=== PATIENT | male | born 1950 | race Asian ===

== ENCOUNTER 2025-08-15 06:28 | Day surgery (SDC) | payer OTHER, SELFPAY ==
[2025-08-15] VITALS (8 sets, daily range): BP systolic 104–141; BP diastolic 53–70; BMI 25.5
[2025-08-15 07:26] LABS: Glucose - Point of Care 128 mg/dl (70-99)
--- NOTE | 2025-08-15 08:39 | ITS.CL.PN ---
Hand Drawer In - Procedure Note
Procedure
Procedure Note:
CARDIAC CATHETERIZATION REPORT
Date of Procedure: 08/15/2025
Referring: Dr. Marek Powell MD
Indication: positive cardiac stress test, severe aortic valve stenosis
PROCEDURE(S)
1. right heart catheterization
2. left heart catheterization
3. coronary angiography
ACCESS
1. 6F right radial artery (closure: radial band)
2. 5F right antecubital vein (closure: manual hemostasis)
CATHETERS
1. 5F [place]-Jaci
2. 6F JR4
3. 6F JL3.5
MODERATE SEDATION: 25 minutes of moderate sedation was utilized. An independent medical research tech was present to assist with and help manage the patient's level of consciousness and physiologic status.
HEMODYNAMIC DATA
LV 164/13 (EDP 23) mmHg
AO 139/68 (mean 98) mmHg
RA 12 mmHg
RV 37/8 (EDP 15) mmHg
PA 36/18 (mean 27) mmHg
PCWP 17 mmHg
SaO2 97.8%
SvO2 65.9%
Hb 10.1 g/dL
CO/CI 5.28/2.85 L/min/m2
SVR 1303 dsc*-5
PVR 1.9 Wood units
CORONARY ANGIOGRAPHY
Dominance: Right
LM: Large vessel with mild ostial tapering.
LAD: Large vessel giving rise to a small D1 and moderate caliber branching D2 before wrapping around the apex. There are trivial luminal irregularities only.
LCx: Moderate caliber vessel giving rise to a small OM1, moderate caliber OM2, and small OM 3. There are trivial luminal irregularities only.
RCA: Large vessel giving rise to a small RPDA, moderate caliber LPL1, and small LPL 2. There are trivial luminal irregularities only.
CONCLUSIONS
1. Mild coronary artery disease as described.
2. Mildly elevated biventricular filling pressures and normal cardiac output.
3. Elevated pullback gradient across the aortic valve consistent with known severe aortic valve stenosis demonstrated on recent echocardiogram.
RECOMMENDATIONS
1. Primary prevention of coronary artery disease.
2. Proceed with evaluation for TAVR.
Copy to: Dr. Marek Powell MD (postal supervisor); Dr. Juan Tejada DO (PCP)
Signed: Scott Dye MD, PhD
[2025-08-15 09:02] LABS: Glucose - Point of Care 122 mg/dl (70-99)
[2025-08-15] MEDS: LOW STRENGTH ASPIRIN 81 MG PO (09:05)
[2025-08-15] MEDS: NSS 1000 IV (09:06)
--- NOTE | 2025-08-15 11:53 | CONSULT.STRU ---
Translation Services
-
Preferred Language: Kiswahili
Comment: present at bedside and reviewed TAVR procedure/evaluation with her. Replenishment Specialist services to be arranged for CT surgery office consult.
Consultation
-
Date/Time Consultation Requested: 08/15/2025 0930
Date/Time Consultation Performed: 08/15/2025 1000
Requesting Provider: Dr. Scott Dye
Performing Provider: ROSA Holly
Reason for Consultation: Severe aortic stenosis/ TAVR evaluation
Patient History
Physicians
Family Physician: Juan Tejada
Outpatient Boat Tester: Dr. Marek Powell
Primary Boat Tester: Dr. Marek Powell
History of Present Illness
Mr. Jara is a very pleasant 75yo male who follows as outpatient with Dr. Marek Powell. His primary language is Kiswahili but his is at bedside to assist with interpretation at this time. Arrangements for screw down service made for CT surgery consult
appointment. He has known history of aortic stenosis and in the fall reported occasional exertional dyspnea with high level activity. However, he is able to exercise regularly without any symptoms. No obvious chest pain, chest pressure,
palpitations, PND, orthopnea or edema. Does not report dizziness or lightheadedness. He was found to be anemic at that time. He started iron. His states today he no longer has any symptoms. Denies fatigue and is very active according to her.
Most recent echocardiogram on 05/19/2025 is notable for EF of 68%, AV MG 43mmHg, ROYER: 0.8, mild to moderate AI, mild MR, trace TR. He underwent cardiac cath today which demonstrated Mild coronary artery disease. Mildly elevated biventricular filling
pressures and normal cardiac output.Elevated pullback gradient across the aortic valve consistent with known severe aortic valve stenosis demonstrated on recent echocardiogram.
Pathophysiology of aortic stenosis and treatment options of TAVR and SAVR reviewed with patient's . Explained the evaluation process including follow up blood work, CT scan and CT surgery consult. She is aware her will need dental
clearance. he does have regular dental care. Provided with appointments for CT scan and CT surgery consult. Given copy of TAVR education booklet with contact information. Allowed for and answered questions.
Past Medical History
Past Medical History: HTN, Hypercholesterolemia, NIDDM, Valvular Disease (Severe , mild to moderate AI, mild MR, trace TR) and Other (Anemia)
Past Surgical History
Past Surgical History: None
Dental History
Regular dental care: Dr. Fortunato Ochoa
Family History
Mother: at Age (89yo, liver cancer)
Father: at Age (78yo,, unknown cause)
Social History
Alcohol: Occasional
Drug: None
Tobacco: Former Smoker (quit 30 years ago)
Personal:
Living: With Spouse
Employment: Retired
Allergies
Allergy/AdvReac Type Severity Reaction Status Date / Time
No Known Allergies Allergy Unverified 08/15/25 07:11
Home Medications
�Medication �Instructions �Recorded �Confirmed �Type
aspirin 81 mg chewable tablet 81 mg DAILY 08/15/25 08/15/25 History
lisinopril-hydrochlorothiazide 20 mg DAILY 08/15/25 08/15/25 History
metformin 1,000 mg tablet 1,000 mg PO DAILY 08/15/25 08/15/25 History
simvastatin 40 mg tablet 40 mg BID 08/15/25 08/15/25 History
STS%
STS %: 1.37%
Review of Systems
-
History Source: Patient and Family
General: Reports Fatigue (felt about a month or two ago but now feels well, no complaints)
HEENT: Reports No Symptoms
Respiratory: Reports No Symptoms; Denies JEFFERSON, Cough or PND
Cardiac: Reports No Symptoms; Denies Chest Pain, CAD or Palpitations
Abdomen/GI: Reports No Symptoms; Denies Abdominal Pain or Reflux
: Reports No Symptoms; Denies Dysuria
Musculoskeletal: Reports No Symptoms
Skin: Reports No Symptoms
Neurological: Reports No Symptoms
Vascular: Reports No Symptoms
Physical Exam
Vital Signs
Temp 97.2 F 08/15/25 07:23
Temp route: Temporal 08/15/25 07:23
Pulse 77 08/15/25 11:15
Resp Rate 18 08/15/25 08:47
Blood pressure 104/62 08/15/25 10:32
Blood pressure extremity used: Left upper arm 08/15/25 08:45
Position: Sitting 08/15/25 08:45
MAP (cuff-Karin Monitor) 75 08/15/25 10:32
SaO2 98 08/15/25 11:15
Oxygen Mode of Delivery Room air 08/15/25 10:30
Can the patient verbally communicate their pain? Yes 08/15/25 07:23
Actual Weight 73.8 kg 08/15/25 07:06
Body Mass Index (BMI) 25.5 08/15/25 07:06
Labs
07/27/2025- [facility]
H/H: 10.0/31.1
Platelets: [id number]
WBC: 4.4
BUN/Creat:191.02
GFR: 76
ALB: 4.6
Diagnostic Studies
05/19/2025 Echocardiogram:
SUMMARY
1. Left ventricular ejection fraction is normal with an ejection fraction of 68 % by Abernathy's biplane method of discs.
2. Aortic valve is calcified and severely restricted in motion. Mean gradient is 43 mmhg . Aortic valve area by continue medication is 0.8 cm². Dimensionless index is 0.25
Above finding is consistent with a severe aortic stenosis. Mild to moderate aortic valve regurgitation.
Aortic stenosis has progressed to severe range since last study.
3. Moderate left ventricular hypertrophy.
4. Right ventricular size and systolic function are within normal limits.

Transthoracic Echo procedure
A complete Transthoracic Echocardiogram was performed utilizing Two-Dimensional evaluation with color flow and spectral Doppler analysis.
PHYSICIAN INTERPRETATION
Left Ventricle:
Left ventricular ejection fraction is normal with an ejection fraction of 68 % by Abernathy's biplane method of discs. Left ventricular cavity size is 3.60 cm which is normal. There is moderate left ventricular hypertrophy. Stage I diastolic
dysfunction suggestive of abnormal relaxation.
Right Ventricle:
Right ventricular size and systolic function are within normal limits.
Left Atrium:
Left atrial size is the left atrium is normal in size.
Right Atrium:
Right atrial size is normal. The inferior vena cava appears normal.
Interatrial Septum:
The interatrial septum appears normal and intact, with no evidence of interatrial shunting.
Aortic Valve:
Mild aortic regurgitation. Aortic valve is calcified and severely restricted in motion. Mean gradient is 43 mmhg . Aortic valve area by continue medication is 0.8 cm². Dimensionless index is 0.25
Above finding is consistent with a severe aortic stenosis. Mild to moderate aortic valve regurgitation.
Aortic stenosis has progressed to severe range since last study.
Mitral Valve:
Mitral valve opens normally. No evidence of mitral valve stenosis. mild mitral valve regurgitation.
Tricuspid Valve:
Tricuspid valve opens normally. There is no evidence of tricuspid stenosis. Trace tricuspid regurgitation.
Pulmonic Valve:
The pulmonic valve is not well seen. There is no evidence of pulmonary valve stenosis. Trace pulmonary valve regurgitation.
Aorta:
The aortic annulus appears normal in dimension, with no evidence of dilatation or obstruction.
Pericardium:
There is no evidence of pericardial effusion.
08/15/2025 Cardiac Catheterization:
HEMODYNAMIC DATA
LV 164/13 (EDP 23) mmHg
AO 139/68 (mean 98) mmHg
RA 12 mmHg
RV 37/8 (EDP 15) mmHg
PA 36/18 (mean 27) mmHg
PCWP 17 mmHg
SaO2 97.8%
SvO2 65.9%
Hb 10.1 g/dL
CO/CI 5.28/2.85 L/min/m2
SVR 1303 dsc*-5
PVR 1.9 Wood units
CORONARY ANGIOGRAPHY
Dominance: Right
LM: Large vessel with mild ostial tapering.
LAD: Large vessel giving rise to a small D1 and moderate caliber branching D2 before wrapping around the apex. There are trivial luminal irregularities only.
LCx: Moderate caliber vessel giving rise to a small OM1, moderate caliber OM2, and small OM 3. There are trivial luminal irregularities only.
RCA: Large vessel giving rise to a small RPDA, moderate caliber LPL1, and small LPL 2. There are trivial luminal irregularities only.
CONCLUSIONS
1. Mild coronary artery disease as described.
2. Mildly elevated biventricular filling pressures and normal cardiac output.
3. Elevated pullback gradient across the aortic valve consistent with known severe aortic valve stenosis demonstrated on recent echocardiogram.
RECOMMENDATIONS
1. Primary prevention of coronary artery disease.
2. Proceed with evaluation for TAVR.
Exam
General: Well Developed, Well Nourished, No Apparent Distress and Comfortable
HEENT: Normocephalic and PERRLA
Neck: Trachea Midline
Respiratory: Clear; Negative Wheezes, Crackles or Rhonchi
Cardiac: S1/S2, Regular Rhythm and Murmur (Grade III/ ATILIO)
GI: Soft, Non Tender, Non Distended and Normal Bowel Sounds
Rectal: Deferred by Provider
Skin: Warm and Dry
Neuro: AO x 3 and Nonfocal/Grossly Intact
Extremities: Pulses (palpable pedal pulses); Negative Lower Level Edema
Psych: Calm
Assessment / Plan
-
Procedure Type:�Isolated AVR
Perioperative Outcome Estimate %
Operative Mortality 1.37%
Morbidity & Mortality 5.95%
Stroke 1.28%
Renal Failure 1.08%
Reoperation 3.2%
Prolonged Ventilation 2.57%
Deep Sternal Wound Infection 0.031%
Long Hospital Stay (>14 days) 3.06%
Short Hospital Stay (<6 days)* 43.1%
Severe aortic stenosis:
-Continue evaluation for TAVR/SAVR as outpatient
-Follow up BMP on 08/22/2025
-CT TAVR scan 08/25/2025 at 0930 pending BMP results
-Dental clearance- Dr. Ochoa- request sent
-Continue ASA 81mg daily
-CT surgery consult
-Structural heart team discussion
Data Reviewed
-
EKG: Report Reviewed by me
Consumer Safety Inspector: Report Reviewed by me, Discussed with Physician, Discussed with Patient and Discussed with Family
Echo: Report Reviewed by me, Discussed with Patient and Discussed with Family
Labs: Labs Reviewed by me
Old Records: Reviewed (cardiology consult notes)
Total Time Spent with Patient (in minutes): 30
== END 2025-08-15 11:35 | disposition home or self-care (01) ==
LOC: CATH 06:28
PROVIDERS: ATTENDING PHYSICIAN Student in an Organized Health Care Education/Training Program; FAMILY PHYSICIAN Family Medicine; OTHER PHYSICIAN Internal Medicine Cardiovascular Disease
DX: I25.10 Atherosclerotic heart disease of native coronary artery without angina pectoris (principal); I10 Essential (primary) hypertension; E78.00 Pure hypercholesterolemia, unspecified; E11.9 Type 2 diabetes mellitus without complications; I35.2 Nonrheumatic aortic (valve) stenosis with insufficiency; I08.3 Combined rheumatic disorders of mitral, aortic and tricuspid valves; Z87.891 Personal history of nicotine dependence; Z80.0 Family history of malignant neoplasm of digestive organs; D64.9 Anemia, unspecified; R06.09 Other forms of dyspnea; I11.9 Hypertensive heart disease without heart failure; Z79.84 Long term (current) use of oral hypoglycemic drugs; Z79.82 Long term (current) use of aspirin; Z79.899 Other long term (current) drug therapy
CPT/HCPCS: 99152; 99153; 82962; 93460; C1769; C1894; Q9967